=== PATIENT | female | born 1960 | race Caucasian/White ===

== ENCOUNTER → 2021-02-23 | Outpatient (CLI) | payer OTHER ==
[2021-02-23 10:01] LABS: ABSOLUTE NEUTROPHILS 2.3 thou/uL (1.4-8.2); BASOPHILS 1.6 % (0.0-2.0); HEMATOCRIT 39.9 % (37.0-47.0); HEMOGLOBIN 14.1 gm/dL (12.0-15.0); LYMPHOCYTES 30.4 % (24.0-44.0); MCH 31.8 pg (26.0-34.0); MCHC 35.3 g/dL (28.0-37.0); MCV 90.1 fL (80.0-100.0); MONOCYTES 6.7 % (1.0-8.0); PLATELET COUNT 279 thou/uL (150-400); POLYS 50.3 % (36.0-66.0); RBC 4.43 mil/uL (4.20-5.00); RDW 12.7 % (10.5-14.5); WBC 4.6 thou/uL (4.0-11.0)
[2021-02-23 10:15] LABS: ALBUMIN 3.9 g/dL (3.4-5.0); ANION GAP 2 mmol/L (7-16); BUN 15 mg/dL (7-18); CALCIUM 9.1 mg/dL (8.5-10.1); CHLORIDE 105 mmol/L (98-107); CHOLESTEROL 149 mg/dL (<200); CO2 33 mmol/L (21-32); CREATININE 0.8 mg/dL (0.6-1.0); GLUCOSE 93 mg/dL (74-106); HDL CHOLESTEROL 44 mg/dL (>40); LDL CHOLESTEROL 82 mg/dL (<100); POTASSIUM 4.7 mmol/L (3.5-5.1); SGOT 17 U/L (15-37); SGPT 35 U/L (30-65); SODIUM 140 mmol/L (136-145); TC:HDL 3.4 Ratio (Not establshd); TOTAL BILIRUBIN 0.4 mg/dL (0.2-1.0); TOTAL PROTEIN 7.4 g/dL (6.4-8.2); TRIGLYCERIDE 115 mg/dL (<150); VLDL 23 mg/dL (<40)
== END ==
LOC: LAB 07:38
PROVIDERS: ATTEND Neuromusculoskeletal Medicine & OMM
DX: R53.82 Chronic fatigue, unspecified (principal); E03.9 Hypothyroidism, unspecified; E55.9 Vitamin D deficiency, unspecified; Z79.899 Other long term (current) drug therapy

== ENCOUNTER → 2021-03-14 | Outpatient (CLI) | payer OTHER | LOC: CAT 07:48 | PROVIDERS: ATTEND Neuromusculoskeletal Medicine & OMM | DX: R19.4 Change in bowel habit (principal); R61 Generalized hyperhidrosis ==

== ENCOUNTER → 2021-05-26 | Outpatient (CLI) | payer OTHER | LOC: LAB 08:18 | PROVIDERS: ATTEND Neuromusculoskeletal Medicine & OMM | DX: E03.9 Hypothyroidism, unspecified (principal) ==